=== PATIENT | female | born 1975 | race Caucasian/White ===

== ENCOUNTER 2020-01-04 11:18 | Emergency (ER) | payer OTHER ==
[~2020-01-04] VITALS: Ht 167.6 cm; Wt 142.4 kg
[2020-01-04 12:20] LABS: ABSOLUTE NEUTROPHILS 5.6 thou/uL (1.4-8.2); BASOPHILS 0.9 % (0.0-2.0); EOSINOPHILS 1.8 % (0.0-3.0); HEMATOCRIT 38.6 % (37.0-47.0); HEMOGLOBIN 12.5 gm/dL (12.0-15.0); LYMPHOCYTES 32.5 % (24.0-44.0); MCH 26.1 pg (26.0-34.0); MCHC 32.3 g/dL (28.0-37.0); MCV 80.9 fL (80.0-100.0); MONOCYTES 8.7 % (1.0-8.0); PLATELET COUNT 365 thou/uL (150-400); POLYS 56.1 % (36.0-66.0); RBC 4.77 mil/uL (4.20-5.00); WBC 9.9 thou/uL (4.0-11.0)
[2020-01-04 12:41] LABS: ALBUMIN 3.6 g/dL (3.4-5.0); BUN 8 mg/dL (7-18); CALCIUM 9.4 mg/dL (8.5-10.1); CREATININE 0.8 mg/dL (0.6-1.0); GLUCOSE 104 mg/dL (74-106); SGOT 19 U/L (15-37); SGPT 15 U/L (30-65); TOTAL BILIRUBIN 0.3 mg/dL (<0.1-1.0); TOTAL PROTEIN 7.9 g/dL (6.4-8.2); TROPONIN-I <0.06 ng/mL (<0.06)
[2020-01-04 12:57] LABS: ANION GAP 9 mmol/L (7-16); CHLORIDE 100 mmol/L (98-107); CO2 27 mmol/L (21-32); POTASSIUM 4.2 mmol/L (3.5-5.1); SODIUM 136 mmol/L (136-145)
[2020-01-04] MEDS ORDERED: PROMETH-CODEIN 65 ML PO (13:06)
[2020-01-04] MEDS ORDERED: PROAIR HFA8.5 GM INH (13:06)
--- NOTE | 2020-01-04 13:43 | EKG ---
[facility] [place] [address] ELECTROCARDIOGRAM REPORT Name: MARYSOL JACKSON Room #: REG [facility]#: [id number] Admission: 01/04/20 Attend Phys: Discharge: Date of : 71 Report #: [id number] THIS REPORT FOR: cc: FAM - Family physician unknown FAM - Family physician unknown Ronnie Nielsen MD ~ THIS REPORT FOR: //name// [facility] ED Test Date: 2020-01-04 Test Time: 12:22:28 Pat Name: MARYSOL JACKSON Department: Room: Gender: F Patient Care: hannah : 1975 Requested By: Maribel Lama Order Number: [id number] MD: Ronnie Nielsen Measurements Intervals Helix Rate: 81 P: 60 DE: 161 QRS: -12 QRSD: 88 T: 31 QT: 394 QTc: 458 Interpretive Statements Sinus rhythm Probable left atrial enlargement No previous ECG available for comparison Electronically Signed On 01-04-2020 13:41:57 CDT by Ronnie Nielsen [email or web address] <ELECTRONICALLY SIGNED> By: Ronnie Nielsen MD 01/04/20 1341 1222 21 MD BEAR Choi
[2020-01-04 14:39] VITALS: BP 125/71
== END 2020-01-04 14:41 | disposition home or self-care (01) ==
LOC: ER 11:18
PROVIDERS: Physician Assistant
DX: R05 Cough (principal); R07.89 Other chest pain